=== PATIENT | male | born 1985 | race Caucasian/White ===

== ENCOUNTER 2022-10-16 21:23 | Emergency (ER) | payer OTHER ==
[~2022-10-16] VITALS: Ht 170.2 cm; Wt 108.9 kg
[2022-10-16 21:52] VITALS: BP_SYST 146; PULSE 66; RESP 20; TEMP 98.6; O2SAT 96
--- NOTE | 2022-10-16 21:59 | NUR ---
Patient to ER bed CH1 to gown for evaluation. Side rails up.
--- NOTE | 2022-10-16 21:59 | NUR ---
Dr. Guerra with patient in [facility] for MSE.
--- NOTE | 2022-10-16 22:05 | NUR ---
PT BIB SELF C/O RIGHT ANKLE PAIN. PT STATES HE WAS HOLDING HIS WAIT ON A FILING CABNET ON A INCLINED STEPPED BACK AND BELIEVES HE ROLLED HIS ANKLE. PT HAS NO PAST MEDICAL HISTORY. PT DID NOT LET ME ASSESS HIS RIGHT FOOT HE STATES "THE DOCTOR ALREADY LOOKED AND POKED AROUND" PT EDUCATED ON WHY RN NEEDS TO DO HER OWN ASSESSMENT AND PT REFUSED. PT IS [employer] 15 EYES OPEN SPONTRANEOUSLY. PT IS ALERT AND ORIENTED TO PERSON PLACE TIME AND SITUATION. PT DENIES SOB AND CHEST PAIN. PT IN CHAIR 1.
[2022-10-16] MEDS ORDERED: IBUPROFEN 600 MG TABLET PO ONE (22:15)
[2022-10-16] MEDS ORDERED: ACETAMINOPHEN 500 MG TABLET PO ONE (22:15)
--- NOTE | 2022-10-16 22:31 | NUR ---
PT TAKEN TO X-RAY.
[2022-10-16] MEDS ORDERED: ACETAMINOPHEN 500 MG TABLET ONE (22:36)
--- NOTE | 2022-10-16 22:42 | NUR ---
PT COMPLAINS OF 6 OUT OF 10 PAIN. 600 MG MOTRIN AND 1000 MG TYLENOL EXTRA STRENGTH GIVEN TO PT.
[2022-10-16] MEDS ORDERED: HYDR-3917 PO (22:58)
[2022-10-16] MEDS ORDERED: IBUP-1969 PO (22:58)
[2022-10-16 23:31] VITALS: BP_SYST 146; PULSE 66; RESP 20; TEMP 98.6; O2SAT 96
--- NOTE | 2022-10-16 23:37 | NUR ---
Patient given written and verbal discharge instructions and verbalizes understanding. ER MD discussed with patient the results and treatment provided. Patient in stable condition. ID arm band removed. IV catheter removed intact and dressing applied, no active bleeding. Rx of HYDROCODONE AND IBUPROFEN given. Patient educated on pain management and to follow up with PMD. Pain Scale 6 OUT OF 10. Opportunity for questions provided and answered. Medication side effect fact sheet provided.
== END 2022-10-16 23:31 | disposition home or self-care (01) ==
LOC: SED 21:23
DX: S82.64XA Nondisplaced fracture of lateral malleolus of right fibula, initial encounter for closed fracture (principal); Z79.899 Other long term (current) drug therapy; W17.89XA Other fall from one level to another, initial encounter; Y93.89 Activity, other specified; Y92.89 Other specified places as the place of occurrence of the external cause; Y99.8 Other external cause status
CPT/HCPCS: 99283